=== PATIENT | female | born 1975 | race Caucasian/White ===

== ENCOUNTER 2017-12-26 14:23 | Emergency (ER) | payer OTHER ==
[~2017-12-26] VITALS: Ht 154.9 cm; Wt 60.3 kg
[~2017-12-26 14:23] MED LIST: AFRIN15 ML NS; AMOXICILLIN 50500 MG PO; AUGMENTIN 875875 MG PO; CARAFATE 1 GM TA1 G1; IBUPROFEN 800800 MG PO; NORFLEX100 MG PO; OMEPRAZOLE; PREDNISONE 20 M20 MG PO; PROZAC20 MG PO; PROZAC40 MG; TOPAMAX100 MG; TUSSIN COUGH15 MG PO; VICODIN; XANAX; YASMIN 28 TABL1 EACH
[2017-12-26] MEDS ORDERED: ZOLOFT25 MG PO (14:53)
[2017-12-26] MEDS ORDERED: HYDROCODONE-AP1 EAC6 PO (15:34)
[2017-12-26] MEDS ORDERED: NABUMETONE 750750 M1 PO (15:34)
[2017-12-26] MEDS ORDERED: MEDROLDOSEPACK PO (15:34)
[2017-12-26 15:52] VITALS: BP 125/69
== END 2017-12-26 15:53 | disposition home or self-care (01) ==
LOC: M.ERS 14:23
DX: G89.29 Other chronic pain (principal); M54.2 Cervicalgia; F32.9 Major depressive disorder, single episode, unspecified; G43.909 Migraine, unspecified, not intractable, without status migrainosus